=== PATIENT | male | born 1940 | race Caucasian/White ===

== ENCOUNTER → 2017-01-26 | Outpatient (CLI) | payer MEDICARE, OTHER ==
[~2017-01-26] MED LIST: ASPI-496 PO; CLON-365 PO; DONE10TA30 PO; LATA2.5D2 EACHEYE; LISI-167 PO; MULT9LIQ9 PO; NAPR220T77 PO; ROSU5TAB PO; TETR25TA PO; TIMO5DRO5 LEFTEYE
== END | disposition home or self-care (01) ==
LOC: WOUND 13:45
PROVIDERS: ATTEND Internal Medicine
DX: L89.613 Pressure ulcer of right heel, stage 3 (principal); I10 Essential (primary) hypertension; E78.00 Pure hypercholesterolemia, unspecified; M21.6X1 Other acquired deformities of right foot; M86.8X7 Other osteomyelitis, ankle and foot; M19.071 Primary osteoarthritis, right ankle and foot; Z72.89 Other problems related to lifestyle
CPT/HCPCS: G0463; WOU0463

== ENCOUNTER → 2017-02-02 | Outpatient (CLI) | payer MEDICARE, OTHER | END | disposition home or self-care (01) | LOC: WOUND 10:55 | PROVIDERS: ATTEND Internal Medicine | DX: L89.623 Pressure ulcer of left heel, stage 3 (principal); M86.8X7 Other osteomyelitis, ankle and foot; I10 Essential (primary) hypertension; E78.00 Pure hypercholesterolemia, unspecified; H40.9 Unspecified glaucoma; Z72.89 Other problems related to lifestyle | CPT/HCPCS: G0463; WOU0463 ==

== ENCOUNTER → 2017-02-09 | Outpatient (CLI) | payer MEDICARE, OTHER | END | disposition home or self-care (01) | LOC: WOUND 11:00 | PROVIDERS: ATTEND Internal Medicine | DX: L89.623 Pressure ulcer of left heel, stage 3 (principal); I10 Essential (primary) hypertension; E78.00 Pure hypercholesterolemia, unspecified; M19.071 Primary osteoarthritis, right ankle and foot; M21.6X1 Other acquired deformities of right foot; M86.8X7 Other osteomyelitis, ankle and foot; Z72.89 Other problems related to lifestyle | CPT/HCPCS: G0463; WOU0463 ==